=== PATIENT | female | born 1985 | race Caucasian/White ===

== ENCOUNTER 2021-05-28 15:53 | Emergency (ER) | payer MEDICAID, SELFPAY ==
[~2021-05-28] VITALS: Ht 167.6 cm; Wt 58.5 kg
--- NOTE | 2021-05-28 16:33 | NUR ---
household chores: Pt ambulatory to room from lobby at this time.
--- NOTE | 2021-05-28 16:35 | NUR ---
PT AMBULATED STEADILY TO ROOM FROM [facility], CHANGED INTO GOWN, C/O "ARELLANO ON LEFT SIDE OF FACE; HARD TO PINPOINT EXACTLY WHERE THE PAIN IS COMING FROM. VARIES FROM MY JAW TO DENTAL PAIN TO LEFT SIDE OF FACE. THE LIGHT BOTHERS ME", COMFORT MEASURES PROVIDED, VISITORS AT BS, CALL LIGHT WITHIN REACH.
[2021-05-28] MEDS ORDERED: LIDOCAINE 4% TOPICAL SOLUTION 50 ML TP ONE (17:30)
[2021-05-28 17:40] LABS: HCT (SEDRATE) 42.4 % (34.6-47.8)
[2021-05-28 17:42] LABS: BASOPHILS % (AUTO) 1 % (0-1); EOSINOPHILS % (AUTO) 7 % (1-7); LYMPHOCYTES % (AUTO) 27 % (22-44); MEAN CORPUSCULAR HGB CONC 33.3 g/dL (32.4-35.8); MEAN PLATELET VOLUME 7.4 fL (7.4-10.4); MONOCYTES % (AUTO) 9 % (2-9); NEUTROPHILS % (AUTO) 56 % (42-75); PLATELET COUNT 281 x10^3/uL (130-400); RED BLOOD COUNT 4.57 x10^6/uL (3.82-5.3); RED CELL DISTRIBUTION WIDTH 13.4 % (9.6-15.2)
[2021-05-28 17:50] LABS: ALANINE AMINOTRANSFERASE 19 U/L (12-78); ALBUMIN 3.7 g/dL (3.4-5.0); C-REACTIVE PROTEIN, QUANT 0.31 mg/dL (0.02-0.49); CALCIUM 8.5 mg/dL (8.5-10.1)
--- NOTE | 2021-05-28 17:50 | NUR ---
PT TO CT
[2021-05-28] MEDS ORDERED: DIPHENHYDRAMINE 50 MG/ML, 1ML ONE (17:52)
[2021-05-28] MEDS ORDERED: METOCLOPRAMIDE 5 MG/ML, 2ML ONE (17:52)
[2021-05-28] MEDS ORDERED: KETOROLAC 30 MG/1 ML ONE (17:52)
[2021-05-28 17:53] LABS: ALKALINE PHOSPHATASE 72 U/L (45-117); BILIRUBIN,TOTAL 0.9 mg/dL (0.2-1.0); TOTAL PROTEIN 6.7 g/dL (6.4-8.2)
[2021-05-28] MEDS ORDERED: SODIUM CHLORIDE 0.9% 1,000ML IVBOLUS ONE (18:00)
[2021-05-28] MEDS ORDERED: DIPHENHYDRAMINE 50 MG/ML, 1ML IVPush ONE (18:00)
[2021-05-28] MEDS ORDERED: KETOROLAC 30 MG/1 ML IVPush ONE (18:00)
[2021-05-28] MEDS ORDERED: METOCLOPRAMIDE 5 MG/ML, 2ML IVPush ONE (18:00)
[2021-05-28] MEDS ORDERED: SODIUM CHLORIDE FLUSH 10ML SYR IVF ONE (18:00)
[2021-05-28 18:06] LABS: ANION GAP 5 mmol/L (5-15); CHLORIDE 105 mmol/L (98-107)
--- NOTE | 2021-05-28 18:14 | NUR ---
PT RESTING ON GURNEY WITH EYES CLOSED & ROOM LIGHTS DIMMED, MEDICATED PER EMAR, NO NEEDS AT THIS TIME, CALL LIGHT WITHIN REACH.
--- NOTE | 2021-05-28 18:52 | NUR ---
REPORT GIVEN TO SAMRA SETHI
--- NOTE | 2021-05-28 18:54 | NUR ---
report from She SETHI
[2021-05-28 19:07] VITALS: BP 99/61
--- NOTE | 2021-05-28 19:08 | NUR ---
Pt resting in bed with eyes closed, even and symmetrical chest rise, VSS
[2021-05-28] MEDS ORDERED: DEXAMETHASONE 4 MG/ML, 5ML ONE (19:18)
[2021-05-28] MEDS ORDERED: DEXAMETHASONE 4 MG/ML, 1ML IVPush ONE (19:30)
--- NOTE | 2021-05-28 19:51 | NUR ---
Pt has friend at bedside to ensure a safe dc
== END 2021-05-28 21:02 | disposition home or self-care (01) ==
LOC: ED 16:23
DX: G44.039 Episodic paroxysmal hemicrania, not intractable (principal)
CPT/HCPCS: 36415; 70450; 80053; 85025; 85651; 86140; 96361; 96374; 96375; 99284; J1100; J1200; J1885; J2765; J7030